=== PATIENT | male | born 1955 | race Caucasian/White ===

== ENCOUNTER 2019-06-19 06:34 | Inpatient (IN) ==
[2019-06-14 14:33] LABS: Basophils # 0.1 10*3/uL (0.0-0.2); Basophils % 0.7 % (0.0-0.8); Eosinophils # 0.1 10*3/uL (0.0-0.87); Eosinophils % 1.1 % (0.00-10.9); Hematocrit 51.8 VOL% (42.0-52.0); Hemoglobin 17.4 GM/DL (14.0-18.0); Immature Granulocytes % 0.6 %; Immature Granulocytes Absolute 0.07 #; Lymphocytes # 2.2 10*3/uL (1.4-4.0); Lymphocytes % 20.2 % (21.2-54.2); Mean Corpuscular HGB Conc 33.6 GM/DL (32-36); Mean Corpuscular Volume 90.9 FL (87-102); Mean Platelet Volume 10.4 FL (9.6-12.0); Monocytes % 9.3 % (1.7-12.7); Neutrophils % 68.1 % (38.7-73.9); Platelet Count 182 T/CUMM (130-400); Red Cell Distribution Width 13.2 % (9.3-17.3); White Blood Count 10.8 T/CUMM (4-12)
[2019-06-14 14:35] LABS: Albumin 3.8 G/DL (3.4-5.0); Bilirubin,Total 0.9 MG/DL (0.2-1.0); Calcium 9.5 MG/DL (8.5-10.1); Osmolality,Calculated 274.8 MOS/KG (273-304); Total Protein 7.5 G/DL (6.4-8.3)
[~2019-06-19 06:34] MED LIST: ACETAMINOPHEN 500 MG TABLET ONE; ACETAMINOPHEN 500 MG TABLET PO ONE; DIAZEPAM 5 MG TABLET ONE; DIAZEPAM 5 MG TABLET PO ONE; FAMOTIDINE 20 MG TABLET ONE; FAMOTIDINE 20 MG TABLET PO ONE; SODIUM CHLORIDE 0.9% 1,000 ML IV SCH; ceFAZolin 1,000 MG VIAL ONE; ceFAZolin 1,000 MG in SYRINGE 1 EACH IV ONE
[2019-06-19] MEDS ORDERED: HEPARIN 10,000 UNIT/10 ML VIAL ONE (06:49)
[2019-06-19] MEDS ORDERED: NITROGLYCERIN DRIP 0 MG/0 ML BOTTLE IV ONE (06:49)
[2019-06-19] MEDS ORDERED: PROTAMINE SULFATE 50 MG/5 ML VIAL IV ONE (06:49)
[2019-06-19] MEDS ORDERED: PHENYLEPHRINE DRIP 20 MG/250 ML PREMIX IV ONE (06:49)
[2019-06-19] MEDS ORDERED: HEPARIN/NACL 0.9% 2 UNITS/ML 500 ML IV ONE (06:49)
[2019-06-19] MEDS ORDERED: HEPARIN/NACL 0.9% 2 UNITS/ML 3,000 ML IV ONE (07:31)
[2019-06-19] MEDS ORDERED: LIDOCAINE 1% 5 ML VIAL ONE (07:44)
[2019-06-19] MEDS ORDERED: SODIUM CHLORIDE 0.9% 1,000 ML IV PRN (10:39)
[2019-06-19] MEDS ORDERED: TISSUE ADHESIVE 1 EACH APPLICATOR TOP ONE (11:05)
[2019-06-19 11:14] LABS: Hematocrit 40.2 VOL% (42.0-52.0); Hemoglobin 13.8 GM/DL (14.0-18.0)
[2019-06-19] MEDS ORDERED: ONDANSETRON 4 MG/2 ML VIAL IV PRN ×2 (11:25→11:54)
[2019-06-19] MEDS ORDERED: HYDROmorphone 2 MG/1 ML VIAL IV PRN (11:25)
[2019-06-19] MEDS: LACTATED RINGERS 1,000 ML IV SCH ×3 (11:50→21:01)
[2019-06-19] MEDS: HYDROmorphone 2 MG/1 ML VIAL IV PRN ×2 (11:55→12:10)
[2019-06-19] MEDS ORDERED: fentaNYL 100 MCG/2 ML VIAL ONE (12:19)
[2019-06-19] MEDS ORDERED: DESFLURANE 1 UNIT/15 MINUTE INH ONE (12:19)
[2019-06-19] MEDS ORDERED: LIDOCAINE 2% 5 ML VIAL ONE (12:19)
[2019-06-19] MEDS ORDERED: DEXAMETHASONE 4 MG/1 ML VIAL ONE (12:19)
[2019-06-19] MEDS ORDERED: ONDANSETRON 4 MG/2 ML VIAL ONE (12:19)
[2019-06-19] MEDS ORDERED: MIDAZOLAM 2 MG/2 ML VIAL ONE (12:19)
[2019-06-19] MEDS ORDERED: ETOMIDATE 40 MG/20 ML VIAL IV ONE (12:20)
[2019-06-19] MEDS ORDERED: ROCURONIUM 100 MG/10 ML VIAL IV ONE (12:20)
[2019-06-19] MEDS ORDERED: SODIUM CHLORIDE 0.9% 3,000 ML IV ONE (12:20)
[2019-06-19] MEDS ORDERED: PHENYLEPHRINE 1 MG/10 ML SYRINGE IV ONE ×2 (12:20→12:39)
[2019-06-19] MEDS: oxyCODONE/ACETAMINOPHEN 5-325 MG TABLET PO PRN (15:50)
[2019-06-20] MEDS: oxyCODONE/ACETAMINOPHEN 5-325 MG TABLET PO PRN ×3 (02:30→14:24)
[2019-06-20 05:43] LABS: Calcium 8.3 MG/DL (8.5-10.1); Osmolality,Calculated 289.1 MOS/KG (273-304)
[2019-06-20] MEDS: TAMSULOSIN 0.4 MG CAPSULE PO SCH ×2 (06:50→08:04)
[2019-06-20] MEDS ORDERED: SODIUM CHLORIDE 0.9% 250 ML IV ONE (09:40)
[2019-06-20] MEDS: LACTATED RINGERS 1,000 ML IV SCH ×2 (10:09→12:28)
[2019-06-20] MEDS ORDERED: LIDOCAINE 2% TOP JELLY 20 ML VIAL INTRAURETH ONE (13:13)
[2019-06-20 16:31] VITALS: BP 123/76
[2019-06-20] MEDS ORDERED: TAMSULOSIN 0.4 MG CAPSULE PO SCH (21:00)
== END 2019-06-20 17:21 | disposition home or self-care (01) | DRG 269 ==
LOC: N.SDSINP 06:34 → N.3E 12:56
PROVIDERS: ADMIT Surgery; ATTEND Surgery
PROC: IRERAAA (2019-06-19 08:03)

== ENCOUNTER 2020-07-11 11:39 | Inpatient (IN) ==
[2020-07-11 13:11] LABS: Basophils % 0.2 % (0.0-0.8); Hematocrit 42.7 VOL% (42.0-52.0); Hemoglobin 14.8 GM/DL (14.0-18.0); Immature Granulocytes % 0.6 %; Immature Granulocytes Absolute 0.11 #; Lymphocytes # 1.3 10*3/uL (1.4-4.0); Mean Corpuscular HGB Conc 34.7 GM/DL (32-36); Mean Corpuscular Volume 86.1 FL (87-102); Monocytes % 16.7 % (1.7-12.7); Neutrophils % 75.5 % (38.7-73.9); Platelet Count 132 T/CUMM (130-400); Red Blood Count 4.96 MC/CUMM (3.8-5.5); Red Cell Distribution Width 13.8 % (9.3-17.3); White Blood Count 18.3 T/CUMM (4-12)
[2020-07-11 13:40] LABS: INR 1.1; PT Patient Result 11.5 SECS (9.8-11.9)
[2020-07-11 13:43] LABS: Lymphocytes 7 % (20-55); Platelet Estimate Adequate; Polychromasia Slight; Segmented Neutrophils 75 % (50-85); Total Cells Counted 100
[2020-07-11 13:53] LABS: Albumin 3.1 G/DL (3.4-5.0); Bilirubin,Total 2.7 MG/DL (0.2-1.0); Calcium 8.5 MG/DL (8.5-10.1); Ferritin 342.9 ng/ml (26-388); Osmolality,Calculated 273.1 MOS/KG (273-304); Total Protein 6.8 G/DL (6.4-8.3)
[2020-07-11] MEDS ORDERED: PIPERACILLIN/TAZOBACTAM 3,375 MG in SODIUM CHLORIDE 0.9% 100 ML IV STA (14:08)
[2020-07-11] MEDS ORDERED: GLUCAGON 1 MG VIAL IM PRN (15:43)
[2020-07-11] MEDS ORDERED: DEXTROSE 50% 25 GM/50 ML VIAL IV PRN (15:43)
[2020-07-11] MEDS ORDERED: DOCUSATE SODIUM 100 MG CAPSULE PO PRN (15:43)
[2020-07-11] MEDS ORDERED: ACETAMINOPHEN 325 MG TABLET PO PRN (15:43)
[2020-07-11] MEDS ORDERED: ONDANSETRON 4 MG/2 ML VIAL IV PRN (15:43)
[2020-07-11 17:17] LABS: Hepatitis B Core IgM Quant < 0.05 Index; Hepatitis B Surface Ag Quant < 0.10 Index; Hepatitis B Surface Ag Result Negative (Negative); Hepatitis C Virus Ab Quant 0.07 Index; Hepatitis C Virus Ab Result Negative (Negative)
[2020-07-11] MEDS: SODIUM CHLORIDE 0.9% 1,000 ML IV SCH (17:49)
[2020-07-11] MEDS: ENOXAPARIN 40 MG/0.4 ML SYRINGE SUBCUT SCH (17:51)
[2020-07-11] MEDS ORDERED: VALSARTAN/HCTZ 160-12.5 MG TABLET PO SCH (21:00)
[2020-07-11] MEDS: PIPERACILLIN/TAZOBACTAM 3,375 MG in SODIUM CHLORIDE 0.9% 100 ML IV SCH (21:17)
[2020-07-11] MEDS: metroNIDAZOLE 500 MG TABLET PO SCH (21:17)
[2020-07-11] MEDS: TAMSULOSIN 0.4 MG CAPSULE PO SCH (21:18)
[2020-07-11] MEDS: BISOPROLOL 5 MG TABLET PO SCH (21:18)
[2020-07-12] MEDS: PIPERACILLIN/TAZOBACTAM 3,375 MG in SODIUM CHLORIDE 0.9% 100 ML IV SCH ×2 (05:27→13:40)
[2020-07-12 06:05] LABS: Basophils % 0.3 % (0.0-0.8); Eosinophils % 0.1 % (0.00-10.9); Hematocrit 40.8 VOL% (42.0-52.0); Hemoglobin 13.8 GM/DL (14.0-18.0); Immature Granulocytes % 0.7 %; Lymphocytes # 1.3 10*3/uL (1.4-4.0); Lymphocytes % 9.5 % (21.2-54.2); Mean Corpuscular HGB Conc 33.8 GM/DL (32-36); Mean Corpuscular Volume 88.1 FL (87-102); Mean Platelet Volume 10.2 FL (9.6-12.0); Monocytes % 14.8 % (1.7-12.7); Neutrophils % 74.6 % (38.7-73.9); Platelet Count 144 T/CUMM (130-400); Red Blood Count 4.63 MC/CUMM (3.8-5.5); Red Cell Distribution Width 13.8 % (9.3-17.3); White Blood Count 13.5 T/CUMM (4-12)
[2020-07-12 06:23] LABS: Albumin 2.9 G/DL (3.4-5.0); Bilirubin,Total 1.5 MG/DL (0.2-1.0); Calcium 8.7 MG/DL (8.5-10.1); Osmolality,Calculated 275.1 MOS/KG (273-304); Risk Ratio 4.77; Total Protein 7.3 G/DL (6.4-8.3); VLDL CHOLESTEROL 25.8 MG/DL
[2020-07-12 06:26] LABS: Ferritin 354.8 ng/ml (26-388)
[2020-07-12] MEDS ORDERED: HYDROmorphone 2 MG/1 ML VIAL IV PRN (09:31)
[2020-07-12] MEDS: OLMESARTAN 20 MG TABLET PO SCH (09:31)
[2020-07-12] MEDS: PANTOPRAZOLE 40 MG TABLET PO SCH (09:32)
[2020-07-12] MEDS: ASPIRIN EC 81 MG TABLET PO SCH (09:32)
[2020-07-12] MEDS: TAMSULOSIN 0.4 MG CAPSULE PO SCH ×2 (09:32→21:03)
[2020-07-12] MEDS: hydroCHLOROthiazide 12.5 MG CAPSULE PO SCH (09:32)
[2020-07-12] MEDS: allopurinoL 300 MG TABLET PO SCH (09:32)
[2020-07-12] MEDS: metroNIDAZOLE 500 MG TABLET PO SCH ×3 (09:42→21:03)
[2020-07-12] MEDS ORDERED: ALBUTEROL 2.5 MG/3 ML NEB RESP TX PRN (11:01)
[2020-07-12 11:13] LABS: PT Patient Result 11.2 SECS (9.8-11.9)
[2020-07-12] MEDS ORDERED: ZALEPLON 5 MG CAPSULE PO PRN (14:52)
[2020-07-12] MEDS: SODIUM CHLORIDE 0.9% 1,000 ML IV SCH ×2 (16:22→18:41)
[2020-07-12] MEDS: ENOXAPARIN 40 MG/0.4 ML SYRINGE SUBCUT SCH (18:10)
[2020-07-12] MEDS: BISOPROLOL 5 MG TABLET PO SCH (21:03)
[2020-07-13] MEDS: PIPERACILLIN/TAZOBACTAM 3,375 MG in SODIUM CHLORIDE 0.9% 100 ML IV SCH ×3 (02:02→18:49)
[2020-07-13 06:33] LABS: Basophils % 0.3 % (0.0-0.8); Eosinophils # 0.1 10*3/uL (0.0-0.87); Eosinophils % 0.7 % (0.00-10.9); Hematocrit 41.8 VOL% (42.0-52.0); Immature Granulocytes % 0.8 %; Immature Granulocytes Absolute 0.08 #; Lymphocytes # 1.4 10*3/uL (1.4-4.0); Lymphocytes % 13.5 % (21.2-54.2); Mean Corpuscular HGB Conc 33.5 GM/DL (32-36); Mean Corpuscular Volume 88.9 FL (87-102); Mean Platelet Volume 10.3 FL (9.6-12.0); Monocytes % 11.9 % (1.7-12.7); Neutrophils % 72.8 % (38.7-73.9); Platelet Count 158 T/CUMM (130-400); Red Cell Distribution Width 13.6 % (9.3-17.3); White Blood Count 10.3 T/CUMM (4-12)
[2020-07-13 06:53] LABS: Albumin 2.6 G/DL (3.4-5.0); Calcium 8.7 MG/DL (8.5-10.1); Osmolality,Calculated 275.8 MOS/KG (273-304); Total Protein 7.2 G/DL (6.4-8.3)
[2020-07-13] MEDS: allopurinoL 300 MG TABLET PO SCH (09:31)
[2020-07-13] MEDS: POTASSIUM CHLORIDE 20 MEQ TABLET PO SCH (09:31)
[2020-07-13] MEDS: PANTOPRAZOLE 40 MG TABLET PO SCH (09:31)
[2020-07-13] MEDS: ASCORBIC ACID 500 MG TABLET PO SCH (09:31)
[2020-07-13] MEDS: hydroCHLOROthiazide 12.5 MG CAPSULE PO SCH (09:31)
[2020-07-13] MEDS: ASPIRIN EC 81 MG TABLET PO SCH (09:31)
[2020-07-13] MEDS: TAMSULOSIN 0.4 MG CAPSULE PO SCH ×2 (09:31→20:51)
[2020-07-13] MEDS: OLMESARTAN 20 MG TABLET PO SCH (09:31)
[2020-07-13] MEDS: metroNIDAZOLE 500 MG TABLET PO SCH ×3 (09:49→20:51)
[2020-07-13] MEDS: SODIUM CHLORIDE 0.9% 1,000 ML IV SCH ×2 (18:43→18:44)
[2020-07-13] MEDS: ENOXAPARIN 40 MG/0.4 ML SYRINGE SUBCUT SCH (18:46)
[2020-07-13] MEDS: BISOPROLOL 5 MG TABLET PO SCH (20:51)
[2020-07-14] MEDS: PIPERACILLIN/TAZOBACTAM 3,375 MG in SODIUM CHLORIDE 0.9% 100 ML IV SCH ×2 (01:55→11:20)
[2020-07-14 05:43] LABS: Basophils % 0.3 % (0.0-0.8); Eosinophils # 0.2 10*3/uL (0.0-0.87); Eosinophils % 1.7 % (0.00-10.9); Hematocrit 39.7 VOL% (42.0-52.0); Hemoglobin 13.2 GM/DL (14.0-18.0); Immature Granulocytes % 0.9 %; Lymphocytes # 1.7 10*3/uL (1.4-4.0); Mean Corpuscular HGB Conc 33.2 GM/DL (32-36); Mean Corpuscular Volume 89.4 FL (87-102); Mean Platelet Volume 9.5 FL (9.6-12.0); Monocytes % 10.2 % (1.7-12.7); Neutrophils % 71.9 % (38.7-73.9); Platelet Count 170 T/CUMM (130-400); Red Blood Count 4.44 MC/CUMM (3.8-5.5); Red Cell Distribution Width 13.5 % (9.3-17.3); White Blood Count 11.2 T/CUMM (4-12)
[2020-07-14 06:03] LABS: Albumin 2.6 G/DL (3.4-5.0); Bilirubin,Total 2.2 MG/DL (0.2-1.0); Osmolality,Calculated 277.5 MOS/KG (273-304); Total Protein 7.2 G/DL (6.4-8.3)
[2020-07-14] MEDS ORDERED: propofoL 200 MG/20 ML VIAL IV ONE (08:24)
[2020-07-14] MEDS ORDERED: LIDOCAINE 2% 5 ML VIAL ONE (08:24)
[2020-07-14] MEDS: hydroCHLOROthiazide 12.5 MG CAPSULE PO SCH (10:56)
[2020-07-14] MEDS: TAMSULOSIN 0.4 MG CAPSULE PO SCH (10:56)
[2020-07-14] MEDS: ASPIRIN EC 81 MG TABLET PO SCH (10:56)
[2020-07-14] MEDS: POTASSIUM CHLORIDE 20 MEQ TABLET PO SCH (10:56)
[2020-07-14] MEDS: OLMESARTAN 20 MG TABLET PO SCH (10:56)
[2020-07-14] MEDS: PANTOPRAZOLE 40 MG TABLET PO SCH (10:57)
[2020-07-14] MEDS: allopurinoL 300 MG TABLET PO SCH (10:57)
[2020-07-14] MEDS: ASCORBIC ACID 500 MG TABLET PO SCH (10:57)
[2020-07-14] MEDS: SODIUM CHLORIDE 0.9% 1,000 ML IV SCH (11:20)
[2020-07-14 12:15] VITALS: BP 150/73
== END 2020-07-14 14:57 | disposition home or self-care (01) | DRG 872 ==
LOC: N.ED 11:39 → SUATTDRO 15:43 → N.5E 15:43
PROVIDERS: ADMIT Emergency Medicine; ATTEND Internal Medicine Geriatric Medicine

== ENCOUNTER 2020-12-04 16:39 | Inpatient (IN) ==
[2020-12-04 17:43] LABS: Basophils % 0.3 % (0.0-0.8); Eosinophils % 0.3 % (0.00-10.9); Hematocrit 49.8 VOL% (42.0-52.0); Hemoglobin 17.1 GM/DL (14.0-18.0); Immature Granulocytes % 0.4 %; Immature Granulocytes Absolute 0.05 #; Lymphocytes % 8.6 % (21.2-54.2); Mean Corpuscular HGB Conc 34.3 GM/DL (32-36); Mean Corpuscular Volume 85.9 FL (87-102); Mean Platelet Volume 10.1 FL (9.6-12.0); Monocytes % 5.9 % (1.7-12.7); Neutrophils % 84.5 % (38.7-73.9); Platelet Count 178 T/CUMM (130-400); Red Cell Distribution Width 13.5 % (9.3-17.3); White Blood Count 11.9 T/CUMM (4-12)
[2020-12-04] MEDS ORDERED: propofoL 200 MG/20 ML VIAL IV ONE ×2 (17:46→18:11)
[2020-12-04 18:06] LABS: Bilirubin,Total 0.7 MG/DL (0.2-1.0); Calcium 9.6 MG/DL (8.5-10.1); Osmolality,Calculated 281.5 MOS/KG (273-304); Potassium 4.3 MMOL/L (3.5-5.1); Total Protein 7.7 G/DL (6.4-8.2)
[2020-12-04] MEDS ORDERED: KETOROLAC 30 MG/1 ML VIAL ONE (18:09)
[2020-12-04] MEDS ORDERED: KETOROLAC 30 MG/1 ML VIAL IV STA (18:10)
[2020-12-04] MEDS ORDERED: HYDROmorphone 2 MG/1 ML VIAL ONE (18:13)
[2020-12-04] MEDS ORDERED: ONDANSETRON 4 MG/2 ML VIAL ONE (18:16)
[2020-12-04] MEDS ORDERED: HYDROmorphone 2 MG/1 ML VIAL IV STA (18:18)
[2020-12-04] MEDS ORDERED: ONDANSETRON 4 MG/2 ML VIAL IV STA (18:20)
[2020-12-04] MEDS ORDERED: ACETAMINOPHEN 325 MG TABLET PO PRN (19:35)
[2020-12-04] MEDS ORDERED: PROMETHAZINE 25 MG/1 ML VIAL IM PRN (19:35)
[2020-12-04] MEDS ORDERED: ONDANSETRON 4 MG/2 ML VIAL IV PRN (19:35)
[2020-12-04] MEDS: LACTATED RINGERS 1,000 ML IV SCH (20:24)
[2020-12-04] MEDS: KETOROLAC 15 MG/1 ML VIAL IV SCH (20:24)
[2020-12-05] MEDS: KETOROLAC 15 MG/1 ML VIAL IV SCH ×4 (02:36→20:45)
[2020-12-05] MEDS: LACTATED RINGERS 1,000 ML IV SCH ×2 (03:33→12:42)
[2020-12-05 05:24] LABS: Basophils % 0.5 % (0.0-0.8); Eosinophils # 0.2 10*3/uL (0.0-0.87); Eosinophils % 2.6 % (0.00-10.9); Hematocrit 40.1 VOL% (42.0-52.0); Immature Granulocytes % 0.5 %; Immature Granulocytes Absolute 0.03 #; Lymphocytes # 1.5 10*3/uL (1.4-4.0); Lymphocytes % 23.6 % (21.2-54.2); Mean Corpuscular HGB Conc 34.2 GM/DL (32-36); Mean Corpuscular Volume 88.7 FL (87-102); Mean Platelet Volume 10.6 FL (9.6-12.0); Monocytes % 11.7 % (1.7-12.7); Neutrophils % 61.1 % (38.7-73.9); Platelet Count 143 T/CUMM (130-400); Red Cell Distribution Width 13.6 % (9.3-17.3)
[2020-12-05 05:25] LABS: Calcium 8.7 MG/DL (8.5-10.1); Osmolality,Calculated 288.1 MOS/KG (273-304)
[2020-12-05 05:26] LABS: Hemoglobin 13.7 GM/DL (14.0-18.0); Red Blood Count 4.52 MC/CUMM (3.8-5.5); White Blood Count 6.5 T/CUMM (4-12)
[2020-12-05] MEDS: HYDROmorphone 2 MG/1 ML VIAL IV PRN ×3 (05:42→23:47)
[2020-12-05] MEDS: POTASSIUM CHLORIDE 20 MEQ TABLET PO SCH (08:47)
[2020-12-05] MEDS: PANTOPRAZOLE 40 MG TABLET PO SCH ×2 (08:47→21:02)
[2020-12-05] MEDS: ASPIRIN EC 81 MG TABLET PO SCH (08:47)
[2020-12-05] MEDS ORDERED: MELOXICAM 7.5 MG TABLET PO SCH (09:00)
[2020-12-05] MEDS ORDERED: PANTOPRAZOLE 40 MG TABLET PO SCH (09:00)
[2020-12-05] MEDS: ENOXAPARIN 40 MG/0.4 ML SYRINGE SUBCUT SCH (12:43)
[2020-12-05] MEDS: OLMESARTAN 20 MG TABLET PO SCH (21:02)
[2020-12-05] MEDS: hydroCHLOROthiazide 12.5 MG CAPSULE PO SCH (21:02)
[2020-12-05] MEDS: BISOPROLOL 5 MG TABLET PO SCH (21:02)
[2020-12-06] MEDS: KETOROLAC 15 MG/1 ML VIAL IV SCH ×4 (01:32→18:35)
[2020-12-06] MEDS: LACTATED RINGERS 1,000 ML IV SCH (03:08)
[2020-12-06] MEDS: POTASSIUM CHLORIDE 20 MEQ TABLET PO SCH (09:50)
[2020-12-06] MEDS: ASPIRIN EC 81 MG TABLET PO SCH (09:50)
[2020-12-06] MEDS: PANTOPRAZOLE 40 MG TABLET PO SCH ×2 (09:50→20:23)
[2020-12-06] MEDS: ENOXAPARIN 40 MG/0.4 ML SYRINGE SUBCUT SCH (13:41)
[2020-12-06] MEDS: OLMESARTAN 20 MG TABLET PO SCH (20:23)
[2020-12-06] MEDS: BISOPROLOL 5 MG TABLET PO SCH (20:23)
[2020-12-06] MEDS: hydroCHLOROthiazide 12.5 MG CAPSULE PO SCH (20:23)
[2020-12-07] MEDS: KETOROLAC 15 MG/1 ML VIAL IV SCH ×4 (01:32→19:04)
[2020-12-07] MEDS: POTASSIUM CHLORIDE 20 MEQ TABLET PO SCH (09:53)
[2020-12-07] MEDS: ASPIRIN EC 81 MG TABLET PO SCH (09:53)
[2020-12-07] MEDS: PANTOPRAZOLE 40 MG TABLET PO SCH ×2 (09:54→20:42)
[2020-12-07] MEDS: ENOXAPARIN 40 MG/0.4 ML SYRINGE SUBCUT SCH (13:01)
[2020-12-07] MEDS: HYDROmorphone 2 MG/1 ML VIAL IV PRN (16:50)
[2020-12-07] MEDS: hydroCHLOROthiazide 12.5 MG CAPSULE PO SCH (20:42)
[2020-12-07] MEDS: OLMESARTAN 20 MG TABLET PO SCH (20:42)
[2020-12-07] MEDS: BISOPROLOL 5 MG TABLET PO SCH (20:42)
[2020-12-08] MEDS: KETOROLAC 15 MG/1 ML VIAL IV SCH ×4 (01:34→20:22)
[2020-12-08] MEDS: ASPIRIN EC 81 MG TABLET PO SCH (09:58)
[2020-12-08] MEDS: PANTOPRAZOLE 40 MG TABLET PO SCH ×2 (09:58→20:20)
[2020-12-08] MEDS: POTASSIUM CHLORIDE 20 MEQ TABLET PO SCH (09:58)
[2020-12-08] MEDS: HYDROmorphone 2 MG/1 ML VIAL IV PRN ×2 (10:03→18:25)
[2020-12-08] MEDS: ENOXAPARIN 40 MG/0.4 ML SYRINGE SUBCUT SCH (13:28)
[2020-12-08] MEDS: hydroCHLOROthiazide 12.5 MG CAPSULE PO SCH (20:19)
[2020-12-08] MEDS: OLMESARTAN 20 MG TABLET PO SCH (20:19)
[2020-12-08] MEDS: BISOPROLOL 5 MG TABLET PO SCH (20:20)
[2020-12-09] MEDS: KETOROLAC 15 MG/1 ML VIAL IV SCH ×3 (01:08→14:33)
[2020-12-09] MEDS ORDERED: ceFAZolin 2,000 MG/50 ML DUPLEX IV ONE (06:00)
[2020-12-09] MEDS: POTASSIUM CHLORIDE 20 MEQ TABLET PO SCH (09:22)
[2020-12-09] MEDS: PANTOPRAZOLE 40 MG TABLET PO SCH ×2 (09:22→20:46)
[2020-12-09] MEDS: ASPIRIN EC 81 MG TABLET PO SCH (09:22)
[2020-12-09] MEDS ORDERED: propofoL 200 MG/20 ML VIAL IV ONE (10:58)
[2020-12-09] MEDS ORDERED: ROCURONIUM 50 MG/5 ML VIAL IV ONE (10:58)
[2020-12-09] MEDS ORDERED: LIDOCAINE 2% 5 ML VIAL ONE (10:58)
[2020-12-09] MEDS ORDERED: SEVOFLURANE 1 UNIT/15 MINUTE INH ONE ×5 (10:59→12:49)
[2020-12-09] MEDS ORDERED: PHENYLEPHRINE 10 MG/1 ML VIAL IV ONE (10:59)
[2020-12-09] MEDS ORDERED: fentaNYL 100 MCG/2 ML VIAL ONE (10:59)
[2020-12-09] MEDS ORDERED: MIDAZOLAM 2 MG/2 ML VIAL ONE (10:59)
[2020-12-09] MEDS: LACTATED RINGERS 1,000 ML IV SCH ×2 (11:10→12:51)
[2020-12-09] MEDS ORDERED: ePHEDrine 50 MG/ML VIAL ONE (11:34)
[2020-12-09] MEDS ORDERED: DEXAMETHASONE 4 MG/1 ML VIAL ONE (11:37)
[2020-12-09] MEDS ORDERED: ONDANSETRON 4 MG/2 ML VIAL ONE (11:37)
[2020-12-09] MEDS ORDERED: GLYCOPYRROLATE 0.4 MG/2 ML VIAL ONE (11:42)
[2020-12-09] MEDS ORDERED: NEOSTIGMINE 10 MG/10 ML VIAL ONE (12:49)
[2020-12-09] MEDS: HYDROmorphone 2 MG/1 ML VIAL IV PRN ×4 (13:30→23:02)
[2020-12-09] MEDS ORDERED: ONDANSETRON 4 MG/2 ML VIAL IV PRN (13:31)
[2020-12-09] MEDS: ENOXAPARIN 40 MG/0.4 ML SYRINGE SUBCUT SCH (14:34)
[2020-12-09] MEDS: OLMESARTAN 20 MG TABLET PO SCH (20:46)
[2020-12-09] MEDS: BISOPROLOL 5 MG TABLET PO SCH (20:46)
[2020-12-09] MEDS: hydroCHLOROthiazide 12.5 MG CAPSULE PO SCH (20:47)
[2020-12-10] MEDS: HYDROmorphone 2 MG/1 ML VIAL IV PRN ×4 (03:10→20:07)
[2020-12-10 06:49] LABS: Basophils % 0.2 % (0.0-0.8); Eosinophils % 0.1 % (0.00-10.9); Hematocrit 39.3 VOL% (42.0-52.0); Hemoglobin 13.3 GM/DL (14.0-18.0); Immature Granulocytes % 0.5 %; Immature Granulocytes Absolute 0.05 #; Lymphocytes # 1.5 10*3/uL (1.4-4.0); Lymphocytes % 15.4 % (21.2-54.2); Mean Corpuscular HGB Conc 33.8 GM/DL (32-36); Mean Corpuscular Volume 86.6 FL (87-102); Mean Platelet Volume 10.1 FL (9.6-12.0); Monocytes % 11.1 % (1.7-12.7); Neutrophils % 72.7 % (38.7-73.9); Platelet Count 172 T/CUMM (130-400); Red Blood Count 4.54 MC/CUMM (3.8-5.5); Red Cell Distribution Width 13.7 % (9.3-17.3)
[2020-12-10] MEDS: TAMSULOSIN 0.4 MG CAPSULE PO SCH (09:36)
[2020-12-10] MEDS: POTASSIUM CHLORIDE 20 MEQ TABLET PO SCH (09:36)
[2020-12-10] MEDS: PANTOPRAZOLE 40 MG TABLET PO SCH ×2 (09:37→20:03)
[2020-12-10] MEDS: ASPIRIN EC 81 MG TABLET PO SCH (09:37)
[2020-12-10] MEDS: POLYETHYLENE GLYCOL POWDER 17 GM PACK PO SCH (13:32)
[2020-12-10] MEDS ORDERED: OXYBUTYNIN 5 MG TABLET PO ONE (14:36)
[2020-12-10 14:58] LABS: Bacteria,Urine Occasional /HPF (Few); Bilirubin,Urine Negative (Negative); Blood, Urine Large mg/dL (Negative); Glucose,Urine (UA) Negative (Negative); Hyaline Casts,Urine 1 /LPF (0-3); Ketones,Urine Negative (Negative); Nitrite,Urine Negative (Negative); Protein,Urine Negative; RBC,Urine 63 /HPF (0-4); Urine Appearance CLEAR (Clear); Urine Color Yellow (Yellow); Urine Specific Gravity 1.015 (1.001-1.035); Urine Urobilinogen < 2.0 EU/DL (0.2-1.0)
[2020-12-10] MEDS: hydroCHLOROthiazide 12.5 MG CAPSULE PO SCH (20:03)
[2020-12-10] MEDS: OLMESARTAN 20 MG TABLET PO SCH (20:03)
[2020-12-10] MEDS: BISOPROLOL 5 MG TABLET PO SCH (20:03)
[2020-12-11] MEDS: HYDROmorphone 2 MG/1 ML VIAL IV PRN ×5 (01:15→20:50)
[2020-12-11] MEDS: ASPIRIN EC 81 MG TABLET PO SCH (08:40)
[2020-12-11] MEDS: PANTOPRAZOLE 40 MG TABLET PO SCH ×2 (08:41→20:46)
[2020-12-11] MEDS: TAMSULOSIN 0.4 MG CAPSULE PO SCH ×2 (08:41→20:46)
[2020-12-11] MEDS: POLYETHYLENE GLYCOL POWDER 17 GM PACK PO SCH (08:41)
[2020-12-11] MEDS: POTASSIUM CHLORIDE 20 MEQ TABLET PO SCH (08:41)
[2020-12-11] MEDS: ALBUTEROL/IPRATROPIUM 3 ML NEB RESP TX SCH ×2 (20:05→23:10)
[2020-12-11] MEDS: OLMESARTAN 20 MG TABLET PO SCH (20:46)
[2020-12-11] MEDS: BISOPROLOL 5 MG TABLET PO SCH (20:46)
[2020-12-11] MEDS: hydroCHLOROthiazide 12.5 MG CAPSULE PO SCH (20:46)
[2020-12-12] MEDS: ALBUTEROL/IPRATROPIUM 3 ML NEB RESP TX SCH ×6 (02:57→23:49)
[2020-12-12] MEDS: POLYETHYLENE GLYCOL POWDER 17 GM PACK PO SCH (08:15)
[2020-12-12] MEDS: POTASSIUM CHLORIDE 20 MEQ TABLET PO SCH (08:15)
[2020-12-12] MEDS: TAMSULOSIN 0.4 MG CAPSULE PO SCH ×2 (08:15→21:15)
[2020-12-12] MEDS: ASPIRIN EC 81 MG TABLET PO SCH (08:15)
[2020-12-12] MEDS: PANTOPRAZOLE 40 MG TABLET PO SCH ×2 (08:16→21:15)
[2020-12-12] MEDS ORDERED: BISACODYL 5 MG TABLET PO PRN (09:20)
[2020-12-12] MEDS ORDERED: BISACODYL 5 MG TABLET PO ONE (09:20)
[2020-12-12] MEDS: ENOXAPARIN 40 MG/0.4 ML SYRINGE SUBCUT SCH (14:38)
[2020-12-12] MEDS: HYDROmorphone 2 MG/1 ML VIAL IV PRN ×2 (17:05→21:15)
[2020-12-12] MEDS: OLMESARTAN 20 MG TABLET PO SCH (21:14)
[2020-12-12] MEDS: BISOPROLOL 5 MG TABLET PO SCH (21:14)
[2020-12-12] MEDS: hydroCHLOROthiazide 12.5 MG CAPSULE PO SCH (21:15)
[2020-12-13] MEDS: ALBUTEROL/IPRATROPIUM 3 ML NEB RESP TX SCH ×3 (03:08→10:44)
[2020-12-13] MEDS: PANTOPRAZOLE 40 MG TABLET PO SCH (09:58)
[2020-12-13] MEDS: POTASSIUM CHLORIDE 20 MEQ TABLET PO SCH (09:58)
[2020-12-13] MEDS: ASPIRIN EC 81 MG TABLET PO SCH (09:58)
[2020-12-13] MEDS: TAMSULOSIN 0.4 MG CAPSULE PO SCH (09:59)
[2020-12-13] MEDS: POLYETHYLENE GLYCOL POWDER 17 GM PACK PO SCH (10:00)
[2020-12-13 12:32] VITALS: BP 146/75
== END 2020-12-13 13:05 | disposition home or self-care (01) | DRG 163 ==
LOC: N.ED 16:39 → N.EDINP 18:19 → N.3E 19:32
PROVIDERS: ADMIT Surgery; ATTEND Surgery